=== PATIENT | male | born 1970 | race Two or more races ===

== ENCOUNTER 2019-01-25 23:55 | Emergency (ER) | payer MEDICAID, OTHER ==
[~2019-01-25] VITALS: Ht 180.3 cm; Wt 117.9 kg
--- NOTE | 2019-01-26 00:05 | NUR ---
BIBA W/ C/O "L ARM PAIN RADIATING TO THE CHEST ON AND OFF FOR THE PAST COUPLE WEEKS". PT RATED THE PAIN 8/10. PT WAS PLACED ON A MONITOR AND VS OBTAINED. - WEAKNESS. - N/V. - DIZZINESS. WILL CONT TO MONITOR ,
--- NOTE | 2019-01-26 00:22 | NUR ---
IV LINE OBTAINED ON R HAND 20G. BLOOD DRAWN AND GIVEN TO LAB TECT AT BEDSIDE
[2019-01-26 00:24] LABS: BASOPHILS # (AUTO) 0.1 /CMM (0.0-0.2); BASOPHILS % (AUTO) 0.8 % (0.0-2.0); HEMATOCRIT 47 % (39-51); HEMOGLOBIN 16.8 g/dL (13.5-17.5); LYMPHOCYTES # (AUTO) 2.8 /CMM (0.8-4.8); LYMPHOCYTES % (AUTO) 27.9 % (20.0-44.0); MEAN CORPUSCULAR HGB CONC 36 g/dl (31.0-36.0); MEAN CORPUSCULAR VOLUME 93 fL (80-96); MONOCYTES # (AUTO) 0.5 /CMM (0.1-1.30); MONOCYTES % (AUTO) 4.8 % (2.0-12.0); NEUTROPHILS # (AUTO) 6.4 /CMM (1.8-8.9); NEUTROPHILS % (AUTO) 63.5 % (43.0-81.0); PLATELET COUNT (AUTO) 166 /CMM (150-450); RED BLOOD CELL COUNT(AUTO) 5.08 MIL/uL (4.5-6.0); WHITE BLOOD COUNT (AUTO) 10.1 K/uL (4.3-11.0)
[2019-01-26] MEDS ORDERED: IV NS 0.9% 500 ML BAG IV ONE (00:30)
[2019-01-26 00:40] LABS: CALCIUM, SERUM 8.7 mg/dL (8.5-10.1); CARBON DIOXIDE 28 mmol/L (21-32); CHLORIDE 102 mmol/L (98-107); CREATININE 0.9 mg/dL (0.6-1.3); GLUCOSE 149 mg/dL (74-106); POTASSIUM 3.5 mmol/L (3.5-5.1); SODIUM SERUM 136 mmol/L (136-145); UREA NITROGEN, BLOOD 20 mg/dL (7-18)
[2019-01-26 00:46] LABS: ALANINE AMINOTRANSFERASE 41 U/L (12-78); ALBUMIN 3.5 g/dL (3.4-5.0); ALKALINE PHOSPHATASE 85 U/L (46-116); ASPARTATE AMINOTRANSFERASE 17 U/L (15-37); B-TYPE NATRIURETIC PEPTIDE 75 PG/ML (0-125); BILIRUBIN,DIRECT 0.1 mg/dL (0.0-0.2); BILIRUBIN,TOTAL 0.4 mg/dL (0.2-1.0); TOTAL PROTEIN, SERUM 7.2 g/dL (6.4-8.2)
[2019-01-26] MEDS ORDERED: KETOROLAC TROMETHAMINE INJ 30 MG/ML VIAL ONE (02:11)
--- NOTE | 2019-01-26 02:18 | NUR ---
WHILE GIVING THE MEDICATION. PT STARTED COUGHING AND VERBALIZED THAT THE PAIN HE IS EXPERIENCING IS BACK AND SAME WHAT HE WAS COMPLAINING OF. HETAL ELENA MADE AWARE
[2019-01-26] MEDS ORDERED: KETOROLAC TROMETHAMINE INJ 30 MG/ML VIAL IV ONE (02:30)
--- NOTE | 2019-01-26 05:30 | NUR ---
Patient discharged to home in stable condition. Written and verbal after care instructions given. Patient verbalizes understanding of instruction.IV removed. Catheter intact and site benign. Pressure and 4x4 applied to site. No bleeding noted. Pt ambulatory with a steady gait
[2019-01-26 05:32] VITALS: BP 113/68
== END 2019-01-26 05:32 | disposition home or self-care (01) ==
LOC: ER 23:56
DX: R07.89 Other chest pain (principal); I11.0 Hypertensive heart disease with heart failure; I50.9 Heart failure, unspecified; J44.9 Chronic obstructive pulmonary disease, unspecified; F17.200 Nicotine dependence, unspecified, uncomplicated
CPT/HCPCS: 36415; 71045; 80048; 80076; 83880; 84484 ×2; 85025; 85730; 93005 ×2; 96374; 99284; J1885; J7040 ×2